=== PATIENT | female | born 1990 | race Caucasian/White ===

== ENCOUNTER 2016-04-12 18:36 | Emergency (ER) | payer MEDICAID ==
[2016-04-12 18:54] VITALS: BP 134/76; PULSE 140; TEMP 102
[2016-04-12] MEDS ORDERED: IBUPROFEN 600 MG TAB PO ONE (19:04)
[2016-04-12] MEDS ORDERED: ACETAMINOPHEN 325 MG/TAB TABLET PO ONE (19:04)
--- NOTE | 2016-04-12 19:04 | EDPRACDOC ---
- General Information Stated Complaint: COUGH/CONGESTION DIARRHEA DIZZY Time Seen by Provider: 04/12/16 18:55 Home Medications: Home Medications Control 04/12/16 Cyclobenzaprine HCl [Flexeril] 10 mg PO TID #21 tab 04/12/16 Ibuprofen 600 mg PO TID #20 tablet 04/12/16 Oseltamivir Phosphate [Tamiflu] 75 mg PO BID #10 capsule 04/12/16 Allergies/Adverse Reactions: Allergies Allergy/AdvReac Type Severity Reaction Status Date / Time No Known Allergies Allergy Verified 04/12/16 19:02 - History of Present Illness Onset: TODAY HPI: PT PRESENTS TODAY WITH FEVER, COUGH/CONGESTION AND N/V/D THAT BEGAN EARLIER TODAY. DAUGHTER BEGAN WITH SIMILAR SYMPTOMS YESTERDAY. ASSOCIATED [employer]. DENIES DIZZINESS, ENT SYMPTOMS, CP, SHOB, ABD PAIN. PT TEARFUL ABOUT HER SITUATION BUT OTHERWISE NO DISTRESS. Shortness of Breath: None Relevant History of: Reports: None Cough: Reports: Non-productive Rhinorrhea: Reports: None Fever Severity/Quality: Reports: greater than 100.5 F Ear Symptoms: Reports: None Associated Signs & Symptoms: Reports: Cough, Fever, Headache, Nausea, Vomiting, Diarrhea, Myalgia Oral Intake: Normal Urinary Output: Normal ED Past Medical History - History Reviewed Yes Nurses notes reviewed and agree except as marked - Patient Medical History Surgical History: Reports: Cholecystectomy (2009) - Family Medical History Reports: Hypertension (MOTHER). Denies: Diabetes, Cancer, Stroke, Cardiac Disorders - Social Medical History Smoking Status: Never smoker EDM Review of Systems - Review of Systems ROS Negative Except as Marked: Yes All systems reviewed and were negative except as marked Constitutional: Fever, Fatigue Eyes: No Symptoms Reported Ears: No Symptoms Reported Throat: No Symptoms Reported Nose: No Symptoms Reported Respiratory: Cough Cardiovascular: No Symptoms Reported Gastrointestinal: Diarrhea, Nausea, Vomiting Genitourinary: No Symptoms Reported Neurological: Headache Musculoskeletal: No Symptoms Reported Integumentary: No Symptoms Reported - Physical Exam Constitutional: Alert (Awake), No apparent distress Oriented to: Time, Person, Place Last recorded Vital Signs: Last Vital Signs Temp 102 F H 04/12/16 18:54 Pulse 140 H 04/12/16 18:54 Resp 20 04/12/16 18:54 BP 134/76 04/12/16 18:54 Pulse Ox 95 04/12/16 18:54 Oxygen Pulse Oxygen Saturation 95 O2 Device Oxygen Flow Rate Fraction of Inspired Oxygen ( FIO2) - HEENT Head: Normal Eye Exam: Normal Oropharynx: Normal Tympanic Membrane: Normal ENT EAC: Normal Nose: No Symptoms Reported Neck: Normal, Denies Pain, Midline - Respiratory/Cardiovascular Respiratory: Normal - CTA Cardiovascular: Tachycardia - GI Palpation: Normal Tenderness: Non tender - Musculoskeletal Back: Normal Extremities: Normal - Integumentary Skin: Hot Lymphatics: Normal - Neurologic Cerebellar: Normal Mood Description: Normal Thought: Coherent Perception: Normal Decision Time to Discharge: 19:02 - Departure Disposition: Home Condition: Stable Final Diagnosis: Influenza Instructions: Influenza (ED) Education/Counseling Given To: Patient Education/Counseling Given Regarding: Diagnosis, Treatment, Follow Up Referrals: Alex Cosme MD [Primary Care Provider] - One Week Prescriptions: New Oseltamivir Phosphate [Tamiflu] 75 mg PO BID #10 capsule Cyclobenzaprine HCl [Flexeril] 10 mg PO TID #21 tab Ibuprofen 600 mg PO TID #20 tablet No Action Control Additional Instructions: REST AND PLENTY OF FLUIDS. WASH HANDS FREQUENTLY. THIS IS VERY CONTAGIOUS.
== END 2016-04-12 19:21 | disposition home or self-care (01) ==
LOC: EDMC 18:36
DX: J11.1 Influenza due to unidentified influenza virus with other respiratory manifestations (principal)
CPT/HCPCS: 99282; J3490